=== PATIENT | female | born 1985 | race Caucasian/White ===

== ENCOUNTER → 2019-04-21 | Outpatient (CLI) | payer BC | LOC: MC.RAD 08:38 | DX: N63.21 Unspecified lump in the left breast, upper outer quadrant (principal) ==

== ENCOUNTER → 2019-11-21 | Outpatient (CLI) | payer BC | LOC: MC.RAD 13:53 | DX: N63.21 Unspecified lump in the left breast, upper outer quadrant (principal) ==

== ENCOUNTER → 2020-11-05 | Outpatient (CLI) | payer BC | LOC: MC.RAD 13:00 | DX: N63.20 Unspecified lump in the left breast, unspecified quadrant (principal) ==

== ENCOUNTER → 2023-01-09 | Outpatient (CLI) | payer BC ==
[~2023-01-09] MED LIST: MAG-OX 400400 MG/TAB PO; NATURAL IRON65 MG; PRENATAL MVI PO; ZOLOFT 50MG50 MG PO
--- NOTE | 2023-01-09 14:04 | NUR ---
Pt, Jaylon Cardoso, presents for an outpt consult with 3 week old baby girl, Kizzy Yadav, for a evaluation. She is also accompanied by her spouse, Reinaldo Yadav. Kizzy was born on [birth year] at 33.6 weeks gestation. She is now 37 weeks gestation. Her weight was 4# 11oz. She was discharged from NICU on 01/05/23 and weight was 5#8oz. Pt reports Kizzy was seen by Dr. Xie two days ago and weighed 5# 9oz. Today Kizzy weighs 5# 11.7oz (2598 gms). Current feeding plan is 4-5 times per day followed by 40-60ml EBM, other feedings are fortified EBM by bottle; she gets 120ml fortified BM daily. Pt states she pumps 50-60ml p BF, 75-100ml if Kizzy does not BF first. At this consult pt offers Kizzy the breast with the nipple shield. Kizzy is slow to take interest. Pt's nipples italia well, pt consents to removal of shield and LC' assist to direct latch. Kizzy opens well and is brought to the breast with a little assistance and is latched well. Swallows noted and parents instructed on quality vs quantity when Kizzy is nursing. Per post feed weights Kizzy gains 28gms from the left breast and 26gms from the right for a total gain of 46gms (1.6oz). POC: continue current feeding plan, but with direct latching and decrease supplement volume p BF to 30ml. Continue with fortified BM. If Kizzy is demanding more supplement, respond appropriately. F/U: next week (4 days) at walk-in clinic. If weight gain is adequate will consider decreasing supplement to every other BF, continue with fortified BM. Questions invited and answered.
== END ==
LOC: LAC 08:31
DX: Z39.1 Encounter for care and examination of lactating mother (principal)

== ENCOUNTER → 2023-03-19 | Outpatient (CLI) | payer BC ==
--- NOTE | 2023-03-19 16:04 | NUR ---
Pt, Jaylon Cardoso, present to walk-in clinic with 13 week old baby girl, Kizzy Yadav. Pt states Kizzy has started to become fussy in the afternoon feedings, that result in Kizzy being bottle fed rather than breastfed. Kizzy was born at 34 weeks gestation at [facility]. weight was 4# 11oz (2126 gms). On 01/15/23 Kizzy weighed 6# 2oz (2778 gms). She was nursing well with and 8oz of fortified BM daily. Today Kizzy weighs 9# 0.8oz (4104 gms). Pt reports on 02/16/23 Kizzy weighed 8# 0oz and on 03/04/23 she weighed 8# 10oz. Pt brings Kizzy to breast but within 1-2 minutes she becomes fussy and pulls back with lots of arching and crying. She is offered the second breast, LC tries to entice her to latch with SNS and use of nipple shield, but she will not latch. Kizzy has a weight gain of 20 gms p . She is bottle fed ~1oz EBM. Pt states she is able to pump 2oz in the afternoon feedings when Kizyz refuses to breastfeed. In the morning she can pump 4oz even after Kizzy has nursed. Impression: Low milk supply. Over the last 15 days Kizzy's weight gain has slowed to 0.45oz per day. The previous 16 days she gaining 0.625oz per day. LC examines Kizzy's mouth for suck (trying finger feeding) and notes she has a high, bubble palate. Kizzy did not establish a good suck on the gloved finger. LC feels Kizzy is not able to compress the nipple against the complete distance of the hard palate causing a decrease in milk transfer, supply and slowed weight gain. seems to nurse well in the morning when milk supply is more abundant. POC: Offer breast as usual, when Kizzy starts fussing proceed with bottle feeding and follow each missed with pumping. F/U: Next week as desired at walk-in clinic. Questions invited and answered.
== END ==
LOC: LAC 13:48
DX: Z39.1 Encounter for care and examination of lactating mother (principal); Z71.89 Other specified counseling